=== PATIENT | female | born 1990 | race Caucasian/White ===

== ENCOUNTER → 2016-10-30 | Outpatient (CLI) | payer BC ==
[~2016-10-30] MED LIST: BCPILLS PO; MINO1CAP25 PO
== END | disposition home or self-care (01) ==
LOC: C.PATHSPEC 17:42
PROVIDERS: ATTEND Obstetrics & Gynecology
DX: R87.610 Atypical squamous cells of undetermined significance on cytologic smear of cervix (ASC-US) (principal); R87.810 Cervical high risk human papillomavirus (HPV) DNA test positive; R87.612 Low grade squamous intraepithelial lesion on cytologic smear of cervix (LGSIL)

== ENCOUNTER → 2017-02-20 | Outpatient (CLI) | payer BC, OTHER | END | disposition home or self-care (01) | LOC: C.PATHSPEC 13:49 → MERGE 13:49 | PROVIDERS: ATTEND Obstetrics & Gynecology | DX: R87.612 Low grade squamous intraepithelial lesion on cytologic smear of cervix (LGSIL) (principal) ==

== ENCOUNTER → 2017-09-17 | Outpatient (CLI) | payer BC | END | disposition home or self-care (01) | LOC: C.PAPS 10:56 | PROVIDERS: ATTEND Obstetrics & Gynecology | DX: N87.1 Moderate cervical dysplasia (principal) ==

== ENCOUNTER 2019-09-24 22:04 | Inpatient (IN) ==
[2019-09-24] MEDS ORDERED: OXYTOCIN 30 UNITS/500 ML BAG IV PRN (22:14)
--- NOTE | 2019-09-24 22:25 | History & Physical Report ---
Date of Service September 24, 2019 Assessment & Plan (1) Normal labor: IUP at 40+ week in labor requesting epidural analgesia anticipate vaginal History of Present Illness Primary Care Provider: NO PCP Patient is a 29 yo white female EDC 09/22/19 who presents t 40+ weeks with regular contractions for the past 3 hours. no bloody show or SPROM. uncomplicated- GBS -negative & blood type -O positive. Allergies Allergy/AdvReac Type Severity Reaction Status Date / Time No Known Drug Allergies Allergy Verified 09/19/19 10:38 Home Medications Home Medications Medication Instructions Recorded Confirmed Type prenat.vits,delano,ptk-gwmv-nntqv 1 tab PO DAILY 05/05/19 09/19/19 History Patient History Medical History (Updated 09/24/19 @ 22:26 by Cheri Wheeler MD, FACOG) Abnormal uterine bleeding Dysplasia of cervix MODERATE DYSPLASIA OF CERVIX MAIDA II Screening, , for anatomic survey (Inactive) Varicella Surgical History (Updated 05/08/19 @ 11:34 by Leann Ng) H/O oral surgery S/P breast augmentation S/P loop electrosurgical excision procedure Family History (Updated 05/08/19 @ 11:35 by Leann Ng) Other No pertinent family history in first degree relatives Social History (Updated 05/08/19 @ 11:35 by Leann Ng) marital status: Smoking Status: Never smoker Review of Systems All systems reviewed & are unremarkable except as noted in HPI & below Physical Exam Constitutional: WD/WN, vitals as above Respiratory: normal respiratory effort, lungs clear to auscultation Cardiovascular: RRR, no murmur, no edema Psychiatric: A+Ox3, euthymic affect Genitourinary: Manual OB Exam: + cervical dilation 4 cm, + cervical effacement 100% and + station -1 OB Exam Monitor Tracing: + external FHT monitor used, + external uterine monitor used, + category I and + normal FHT variability Results & Data Vital Signs (Past 12 Hours) Vital Signs Pulse BP 09/24/19 22:14 75 137/88 Code Status & VTE Plan VTE Prophylaxis Plan VTE Prophylaxis will be ordered: No
[2019-09-24 22:37] LABS: Hematocrit (blood only) 38.8 % (37-47); Mean Corpuscular Volume 92.6 fL (80-100); Mean Platelet Volume 12.1 fL (7.4-10.4); Platelet Count 184 K/uL (130-400); RDW Coefficient of Variation 12.4 % (11.5-14.5); RDW Standard Deviation 41.7 fL (36.4-46.3); Red Blood Count 4.19 M/uL (4.2-5.4)
[2019-09-24] MEDS: LACTATED RINGER'S 1,000 ML IV PRN ×2 (22:37→23:27)
[2019-09-24 22:38] LABS: Mean Corpuscular Hgb Conc 33.5 g/dL (32-36)
[2019-09-24] MEDS ORDERED: ePHEDrine sulfate 50 MG/ML AMP ONE (23:37)
[2019-09-24] MEDS ORDERED: BUPIVACAINE 0.25% 30 ML VIAL ONE (23:37)
[2019-09-24] MEDS ORDERED: fentaNYL citrate 100 MCG/2 ML VIAL ONE (23:37)
[2019-09-24] MEDS ORDERED: fentaNYL 2MCG/ML ROPIV 1.25MG/ML 100 ML BAG EPI ONE (23:38)
--- NOTE | 2019-09-24 23:57 | Anesthesiology Consultation ---
Date of Service September 24, 2019 Assessment & Plan (1) Encounter for pre-operative examination: Chart Review Chart Review: Acceptable Risk for Labor Epidural Consults Requested none ASA ASA2 Proposed Anesthesia Anesthesia Type: Labor Epidural Risk / Benefits Reviewed With: PT / POA / Parent / Guardian, Accepts Plan and Informed Consent Obtained History Height/Weight Height: 5 ft 10 in Weight: 86.183 kg Allergies Allergy/AdvReac Type Severity Reaction Status Date / Time No Known Drug Allergies Allergy Verified 09/19/19 10:38 Medications Home Medications Medication Instructions Recorded Confirmed Last Taken prenat.vits,delano,gxv-ibdm-cygrl 1 tab PO DAILY 05/05/19 09/24/19 09/24/19 09:00 Active Medications Generic Name Dose Route Start Last Admin Trade Name Freq PRN Reason Stop Dose Admin Lactated Ringer's 1,000 mls @ 125 mls/hr 09/24/19 22:14 09/24/19 23:27 Lr IV 09/26/19 22:13 999 mls/hr .Q8H PRN Administration L&D Protocol Protocol Past Medical History Medical History Abnormal uterine bleeding Dysplasia of cervix MODERATE DYSPLASIA OF CERVIX MAIDA II Screening, , for anatomic survey (Inactive) Varicella Exercise / Class Metabolic Activity II 4-5 Yardwork/Stairs/Walk up hill Past Family History Family History Other No pertinent family history in first degree relatives Past Surgical History Surgical History H/O oral surgery S/P breast augmentation S/P loop electrosurgical excision procedure Past Anesthesia History No Hx of Anesthesia Complications and No Family Hx of Anesthesia Complications History of PONV No Hx of PONV and No Hx of Motion Sickness Social History Smoking Status: Never smoker Hx Alcohol Use: No Hx Substance Use: No substance use type: does not use Physical Exam Vital Signs Last Vital Signs Temp 98.8 F 09/24/19 22:18 Pulse 84 09/24/19 23:54 Resp 18 09/24/19 22:18 BP 137/88 09/24/19 22:18 Pulse Ox 100 09/24/19 23:54 ENMT Mouth: no dentition abnormality Thyromental Distance: > or= 3.5 Finger Breadths Mallampati Class: II Neck normal visual inspection Respiratory normal respiratory effort Auscultation: lungs clear to auscultation bilaterally Cardiovascular Rate/Rhythm: regular rate and regular rhythm Testing Laboratory Results 09/24/19 22:28
[2019-09-25] MEDS: LACTATED RINGER'S 1,000 ML IV PRN (00:10)
[2019-09-25] MEDS ORDERED: DiphenhydrAMINE HCL 50 MG/ML VIAL IV PRN (00:18)
[2019-09-25] MEDS ORDERED: NALOXONE HCL 0.4 MG/1 ML VIAL/CARP IV PRN (00:18)
[2019-09-25] MEDS ORDERED: ePHEDrine sulfate 50 MG/ML AMP IV PRN (00:18)
[2019-09-25] MEDS ORDERED: fentaNYL 2MCG/ML ROPIV 1.25MG/ML 100 ML BAG EPI PRN (00:18)
[2019-09-25] MEDS ORDERED: NALOXONE HCL 1 MG in SODIUM CHLORIDE 0.9% 1000ML 1,000 ML IV PRN (00:18)
[2019-09-25] MEDS ORDERED: NALBUPHINE HCL INJ 10 MG/ML AMP IV PRN (00:18)
[2019-09-25] MEDS ORDERED: ONDANSETRON INJ 2 MG/ML 2 ML VIAL IV PRN (00:18)
[2019-09-25] MEDS ORDERED: SUPERCREAM 0.870% 15 GM JAR EXT PRN (06:02)
[2019-09-25] MEDS ORDERED: OXYTOCIN 30 UNITS/500 ML BAG IV PRN (06:02)
[2019-09-25] MEDS ORDERED: OXYCODONE/ACETAMINOPHEN 5mg/325mg TAB PO PRN (06:02)
[2019-09-25] MEDS ORDERED: BENZOCAINE 20% AER SPR 82.5 GM CAN EXT PRN (06:02)
[2019-09-25] MEDS ORDERED: ACETAMINOPHEN 325 MG TAB PO PRN (06:02)
[2019-09-25] MEDS ORDERED: HYDROCORTISONE ACETATE 25 MG SUPP PR PRN (06:02)
[2019-09-25] MEDS ORDERED: bisacodyL 10 MG SUPP PR PRN (06:02)
[2019-09-25] MEDS ORDERED: DIPHTHERIA/TETANUS/PERTUSSIS 0.5 ML SYR/VIAL IM ONE (06:02)
--- NOTE | 2019-09-25 07:21 | Delivery Summary ---
DATE OF OPERATION: 09/25/2019 The patient is a 29-year-old G1, P0 white female, EDC of 09/22/2019 who presented in active labor. She received effective epidural analgesia. Membranes were ruptured when she was 9 cm dilated. She pushed effectively over intact perineum for delivery of a viable female infant. A tight nuchal cord was cut and clamped prior to delivering the rest of the , which was delivered easily. The infant was then placed on the mother's abdomen for further attention and drying. Cord was cut prior to delivering the rest of the because of the tight nuchal cord. The placenta was expressed intact with a 3-vessel cord. A first-degree vaginal laceration was repaired with 3-0 chromic in the usual fashion. Estimated blood loss was 350 mL. Mother and were doing well after delivery. I attest to the content of the Intraoperative Record and any orders documented therein. Any exception s are noted below.
--- NOTE | 2019-09-25 07:35 | Anesthesia Procedure Note ---
Date of Service September 25, 2019 Anesthesia Post Epidural Note Vital Signs Vital Signs: Temp Pulse Resp BP Pulse Ox 36.9 C 82 18 110/60 97 09/25/19 07:00 09/25/19 07:28 09/25/19 07:00 09/25/19 07:28 09/25/19 05:19 Notes Mental Status: alert / awake / arousable and participated in evaluation Nausea / Vomiting: adequately controlled Pain: adequately controlled Airway Patency, RR, SpO2: stable & adequate BP & HR: stable & adequate Hydration State: stable & adequate Neuraxial Anesthesia: was administered and sensory block is resolving Anesthetic Complications: no major complications apparent Epidural: Removed without complications and With tip intact
[2019-09-25] MEDS: IBUPROFEN 600 MG TAB PO PRN ×2 (10:47→16:14)
[2019-09-25] MEDS: DOCUSATE SODIUM 100 MG CAP PO SCH ×2 (14:34→20:46)
[2019-09-25] MEDS: PRENATAL VITAMIN 1 TAB PO SCH (14:34)
--- NOTE | 2019-09-26 06:48 | Obstetrical Progress Note ---
Date of Service September 26, 2019 Assessment & Plan (1) Encounter for care and examination after delivery: - PPD1 - progressing appropriately - continue supportive care Supervising Physician Co-Signing Physician Notes Resident Physician Supervision Note: I interviewed and examined the patient. Discussed with Dr. Lewis and agree with findings and plan as documented in the note. Any exceptions or clarifications are listed here: [None] Documented By: Jyoti Fuentes MD, FACOG Subjective No complaints this AM Review of Systems Constitutional: + fatigue; no fever and no chills Respiratory: no cough and no dyspnea Cardiovascular: no chest pain, no syncope, no edema and no calf pain Gastrointestinal: no abdominal pain, no nausea, no vomiting, no cramping, no constipation and no diarrhea/loose stools Genitourinary: no dysuria and no difficulty urinating Neurologic: no headache(s) Physical Exam Constitutional: well developed and well nourished Respiratory: normal respiratory effort; no respiratory distress, no labored breathing and no cough Auscultation: no crackles, no rales, no rhonchi and no wheezes Cardiovascular: Rate/Rhythm: regular rate and regular rhythm Heart Sounds: no gallop, no murmur and no cardiac rub Extremities: no pedal edema Gastrointestinal (Abdomen): Inspection/Auscultation: + abdomen distended and normal bowel sounds Percussion/Palpation: abdomen soft; no guarding Musculoskeletal: no tenderness to palpation of calves bilaterally Genitourinary: Uterus small and firm, palpable in midline at level of umbilicus, no tenderness to palpation. Results & Data Vital Signs (Past 12 Hours) Vital Signs Temp Pulse Resp BP Pulse Ox 09/26/19 03:10 36.6 C 70 18 124/78 98 09/25/19 23:25 37.0 C 70 18 115/72 97 09/25/19 20:35 36.8 C 75 18 118/80 PG Care Time/CCT Total # of Minutes Spent Total Time Spent with Patient: Total time spent is greater than 50% in coordination of care (as documented) at patient's floor/unit and/or counseling patient: Resident Activity Tracking Resident Involvement: Resident Care Provided Care Provided: OB Delivery
[2019-09-26 07:08] LABS: Hematocrit (blood only) 38.6 % (37-47); Hemoglobin 12.5 g/dL (12.0-16.0); Mean Corpuscular Hemoglobin 30.5 pg (25-34); Mean Corpuscular Hgb Conc 32.4 g/dL (32-36); Mean Corpuscular Volume 94.1 fL (80-100); Mean Platelet Volume 11.5 fL (7.4-10.4); Platelet Count 144 K/uL (130-400); RDW Coefficient of Variation 12.5 % (11.5-14.5); RDW Standard Deviation 42.7 fL (36.4-46.3); White Blood Count 10.45 K/uL (4.8-10.8)
[2019-09-26] MEDS: DOCUSATE SODIUM 100 MG CAP PO SCH (08:52)
[2019-09-26] MEDS: PRENATAL VITAMIN 1 TAB PO SCH (08:52)
[2019-09-26] MEDS ORDERED: bisacodyL 5 MG TABEC PO SCH (20:00)
== END 2019-09-26 12:25 | disposition home or self-care (01) | DRG 807 ==
LOC: OPB 22:04 → 4S1 22:07 → 4S2 09-25 08:45

== ENCOUNTER 2024-10-04 13:22 | Inpatient (IN) ==
[2024-10-04] MEDS ORDERED: LIDOCAINE 1% LOCAL 20 ML VIAL INFIL PRN (13:34)
[2024-10-04] MEDS ORDERED: OXYTOCIN 30 UNITS/NSS 30 UNITS/500 ML BAG IV PRN ×2 (13:34→21:11)
[2024-10-04 14:28] LABS: Hematocrit (blood only) 41.7 % (37.0-47.0); Hemoglobin 14.2 g/dl (12.0-16.0); Mean Corpuscular Hemoglobin 31.4 pg (25.0-34.0); Mean Corpuscular Hgb Conc 34.1 g/dL (32.0-36.0); Mean Corpuscular Volume 92.3 fL (80.0-100.0); Mean Platelet Volume 11.6 fL (9.4-12.4); Platelet Count 193 K/uL (130-400); RDW Coefficient of Variation 11.9 % (11.5-14.5); RDW Standard Deviation 40.4 fL (36.4-46.3); Red Blood Count 4.52 M/uL (4.20-5.40); White Blood Count 11.48 K/ul (4.8-10.8)
[2024-10-04] MEDS: SODIUM CHLORIDE 0.9% 1,000 ML IV SCH (14:30)
--- NOTE | 2024-10-04 15:04 | Anesthesiology Consultation ---
Date of Service October 04, 2024 Assessment & Plan Chart Review Chart Review: Acceptable Risk for Surgery and Acceptable Risk for Labor Epidural Consults Requested none ASA ASA2 Proposed Anesthesia Anesthesia Type: Labor Epidural Risk / Benefits Reviewed With: PT / POA / Parent / Guardian, Accepts Plan and Informed Consent Obtained History Height/Weight Height: 5 ft 9 in Weight: 90.265 kg Allergies Allergy/AdvReac Type Severity Reaction Status Date / Time No Known Drug Allergies Allergy NKA Verified 10/04/24 06:24 Medications Home Medications Medication Instructions Recorded Confirmed Last Taken vits no.124-ferrous fum 1 tab PO DAILY 10/04/24 10/04/24 10/03/24 27 mg iron-folic acid 800 mcg tablet ( Vitamin) Active Medications Generic Name Dose Route Start Last Admin Trade Name Freq PRN Reason Stop Dose Admin Sodium Chloride 1,000 mls @ 80 mls/hr 10/04/24 15:00 10/04/24 15:02 Nss IV 10/05/24 14:59 50 mls/hr .[id number] MABEL Infusion NPO Date Last Intake of Fluids: 10/04/24 Time Last Intake of Fluids: 14:00 Date Last Intake of Solids: 10/04/24 Time Last Intake of Solids: 12:00 Past Medical History Medical History Moderate dysplasia of cervix (MAIDA II) Dysplasia of cervix 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 --LEEP done, CIN1 Varicella Abnormal uterine bleeding Exercise / Class Metabolic Activity II 4-5 Yardwork/Stairs/Walk up hill Past Family History Family History Other No pertinent family history in first degree relatives Denies family history of Ovarian cancer Breast cancer Colorectal cancer Past Surgical History Surgical History S/P appy (03/2020) H/O oral surgery S/P loop electrosurgical excision procedure (02/2017) path - CIN1 S/P breast augmentation Past Anesthesia History No Hx of Anesthesia Complications and No Family Hx of Anesthesia Complications History of PONV No Hx of PONV and No Hx of Motion Sickness Social History Smoking Status: Never smoker Do You Dip or Chew Tobacco: No Hx Alcohol Use: No Hx Substance Use: No substance use type: does not use Physical Exam Vital Signs Last Vital Signs Temp 36.7 C 10/04/24 13:37 Pulse 83 10/04/24 14:55 Resp 20 10/04/24 13:37 BP 118/76 10/04/24 14:55 Pulse Ox 97 10/04/24 14:54 ENMT Mouth: no TMJ abnormality Thyromental Distance: > or= 3.5 Finger Breadths Mallampati Class: II Neck normal visual inspection and trachea midline; neck extension not limited Respiratory normal respiratory effort Auscultation: lungs clear to auscultation bilaterally Cardiovascular Rate/Rhythm: regular rate and regular rhythm Heart Sounds: no murmur Musculoskeletal Spine: normal cervical ROM Extremities: full ROM of extremities Neurologic moves all extremities Psychiatric Orientation: alert and oriented x 3 Testing Laboratory Results 10/04/24 14:00
[2024-10-04] MEDS: BUPIVACAINE 0.25% PF 30 ML VIAL ONE (15:21)
[2024-10-04] MEDS: LIDOCAINE 2%/EPINEPHRINE 1:200,000 20 ML PF ONE (15:21)
[2024-10-04] MEDS: fentaNYL citrate PF 100 MCG/2 ML VIAL ONE (15:21)
[2024-10-04] MEDS: fentANYL 2 MCG/ML BUPIVacaine 0.125%-NSS 100ML BAG ONE (15:22)
[2024-10-04] MEDS ORDERED: NALOXONE HCL 0.4 MG/1 ML VIAL/CARP IV PRN (15:27)
[2024-10-04] MEDS ORDERED: BUPIVACAINE 0.25% PF 30 ML VIAL EPI PRN (15:27)
[2024-10-04] MEDS ORDERED: NALBUPHINE HCL INJ 10 MG/ML AMP IV PRN (15:27)
[2024-10-04] MEDS ORDERED: fentaNYL citrate PF 100 MCG/2 ML VIAL EPI PRN (15:27)
[2024-10-04] MEDS ORDERED: ONDANSETRON INJ 2 MG/ML 2 ML VIAL IV PRN ×2 (15:27→15:50)
[2024-10-04] MEDS ORDERED: NALOXONE HCL 1 MG in SODIUM CHLORIDE 0.9% 1,000 ML IV PRN (15:27)
[2024-10-04] MEDS ORDERED: ROPIVACAINE 0.5% PF 5 MG/ML 20 ML VIAL EPI PRN (15:27)
[2024-10-04] MEDS ORDERED: SODIUM CHLORIDE 0.9% PF INJ 10 ML VIAL EPI PRN (15:27)
[2024-10-04] MEDS ORDERED: fentANYL 2 MCG/ML BUPIVacaine 0.125%-NSS 100ML BAG EPI PRN (15:27)
[2024-10-04] MEDS ORDERED: LIDOCAINE 2% MPF LOCAL 5 ML VIAL EPI PRN (15:27)
[2024-10-04] MEDS ORDERED: diphenhydrAMINE 50 MG/ML VIAL IV PRN (15:27)
[2024-10-04] MEDS: SODIUM CHLORIDE 0.9% PF INJ 10 ML VIAL ONE (15:32)
[2024-10-04] MEDS: ePHEDrine sulfate 50 MG/ML AMP ONE (15:32)
[2024-10-04] MEDS: ePHEDrine sulfate 50 MG/ML AMP IV PRN (15:50)
--- NOTE | 2024-10-04 16:23 | History & Physical Report ---
Date of Service October 04, 2024 Assessment & Plan (1) Term : Plan: Yara is a 34-year-old G2, P1 currently at 39 weeks 4 days gestational age presents in labor. 1. Fetus: Category 1 tracing 2. Labor: Progressing spontaneously. Status post spontaneous rupture of membrane 3. Vitals: Within normal limit 4. GBS negative (2) Normal labor: Admission and Anticipated Discharge Date Admission Date: October 04, 2024 History of Present Illness Primary Care Provider: NO PCP Yara is a 34-year-old G2, P1 currently at 39 weeks 4 days gestational age presents in labor. complicated by advanced maternal age but has been otherwise uncomplicated OB Labs: Blood Type O Positive 02/28/24 Antibody Screen NEGATIVE 02/28/24 Hgb 13.0 g/dl (12.0-16.0) 07/28/24 Hct 38.4 % (37.0-47.0) 07/28/24 MCV 92.1 fL (80.0-100.0) 02/28/24 Plt Count 214 K/uL (130-400) 02/28/24 Rubella IgG Antibody Immune (Immune) 02/28/24 RPR Nonreactive (Nonreactive) 02/28/24 Treponema pallidum Ab Negative (Negative) 07/28/24 Hep Bs Antigen Neg (Neg) 02/21/19 Hep Bs Antigen NON-REACTIVE (NON-REACTIVE) 02/28/24 Hepatitis C Ab (EIA) NON-REACTIVE (NON-REACTIVE) 02/28/24 HIV 1&2 Ab/P24 Ag 4thGn Neg (Neg) 02/21/19 HIV (1&2) Ag & Ab Conf NON-REACTIVE (NON-REACTIVE) 02/28/24 Glucose 1 Hr 50 gm 135 mg/dl (70-130) H 04/21/24 OB Optional Labs: Chlamydia trachomatis RNA Not Detected (NotDetected) 02/28/24 Neisseria gonorrhoeae RNA Not Detected (NotDetected) 02/28/24 Thyroid Stimulating Hormone (TSH) 2.199 uIu/ml (0.300-4.500) 01/25/23 Labs Reviewed: declined CF/SMA/MSAFP (-) cfDNA Allergies Allergy/AdvReac Type Severity Reaction Status Date / Time No Known Drug Allergies Allergy NKA Verified 10/04/24 06:24 Home Medications Medication Instructions Recorded Confirmed Type vits no.124-ferrous fum 1 tab PO DAILY 10/04/24 10/04/24 History 27 mg iron-folic acid 800 mcg tablet ( Vitamin) Patient History Medical History Moderate dysplasia of cervix (MAIDA II) Dysplasia of cervix 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 --LEEP done, CIN1 Varicella Abnormal uterine bleeding Surgical History S/P appy (03/2020) H/O oral surgery S/P loop electrosurgical excision procedure (02/2017) path - CIN1 S/P breast augmentation Family History Other No pertinent family history in first degree relatives Denies family history of Ovarian cancer Breast cancer Colorectal cancer Social History Smoking Status: Never smoker Second Hand Exposure: No; Do You Dip or Chew Tobacco: No; Tobacco Cessation Education Requested by Patient: No Hx Alcohol Use: No Hx Substance Use: No Preferred Language: [place] Citizen Communication Ability: Effective Electrical Line Mechanic Required: No Beliefs That Will Affect Care: None marital status: marital status details: Jorge Barahona (38) [phone] Current Living Situation: Spouse and Family Current Living Situation Comment: lives with spouse, daughter, dog current occupational status: employed current occupation: [employer] Other Information That Helps Us Care for You: No Feels Safe at Home: Yes Safety Concerns: Feels Safe At This Time Diet: regular Physical Activity Frequency: Daily Assistive Devices: None Physical Exam Genitourinary: Manual OB Exam: + cervical dilation 5 cm, + cervical effacement 90%, + station -2 and + amniotic fluid (SROM) clear OB Exam Monitor Tracing: + external FHT monitor used, + external uterine monitor used, + category I and + normal FHT variability Results & Data Vital Signs (Past 12 Hours) Vital Signs Temp Pulse Resp BP Pulse Ox 10/04/24 16:14 98 10/04/24 16:14 74 10/04/24 16:14 77 102/58 L 10/04/24 16:10 95 H 107/61 10/04/24 16:09 88 99 10/04/24 16:05 76 107/61 10/04/24 16:04 79 98 10/04/24 16:00 16 10/04/24 16:00 16 10/04/24 15:59 97 10/04/24 15:59 108 H 10/04/24 15:59 110 H 134/86 10/04/24 15:57 82 135/78 10/04/24 15:54 98 H 90/53 L 98 10/04/24 15:52 88 101/61 10/04/24 15:49 98 10/04/24 15:49 86 10/04/24 15:49 78 85/50 L 10/04/24 15:44 99 10/04/24 15:44 89 10/04/24 15:44 108 H 102/72 10/04/24 15:39 97 10/04/24 15:39 101 H 10/04/24 15:39 90 104/63 10/04/24 15:34 97 10/04/24 15:34 93 H 10/04/24 15:34 86 123/77 10/04/24 15:32 96 H 118/83 10/04/24 15:30 91 H 16 118/75 10/04/24 15:29 96 10/04/24 15:29 94 H 10/04/24 15:29 87 93 10/04/24 15:28 86 117/70 10/04/24 15:27 16 10/04/24 15:27 16 10/04/24 15:26 93 H 117/67 10/04/24 15:25 16 10/04/24 15:25 16 10/04/24 15:24 96 10/04/24 15:24 89 10/04/24 15:24 85 118/69 10/04/24 15:22 18 10/04/24 15:22 18 10/04/24 15:21 75 122/77 10/04/24 15:20 78 16 127/78 10/04/24 15:19 79 97 10/04/24 15:17 75 126/77 10/04/24 15:14 100 H 96 10/04/24 15:13 89 90 10/04/24 15:10 85 131/76 10/04/24 15:09 96 H 98 10/04/24 15:04 81 97 10/04/24 14:59 92 H 97 10/04/24 14:55 83 118/76 10/04/24 14:54 82 97 10/04/24 14:49 86 97 10/04/24 14:44 82 98 10/04/24 14:40 83 116/73 10/04/24 14:39 87 97 10/04/24 14:34 84 96 10/04/24 14:29 87 97 10/04/24 14:27 81 94 10/04/24 14:24 79 97 10/04/24 14:20 37.0 C 10/04/24 14:18 85 96 10/04/24 14:13 87 96 10/04/24 14:08 88 97 10/04/24 14:03 91 H 96 10/04/24 13:58 83 97 10/04/24 13:53 99 H 97 10/04/24 13:37 36.7 C 86 20 137/85 Code Status & VTE Plan VTE Prophylaxis Plan VTE Prophylaxis will be ordered: No Coding Level of Care Code None Diagnoses Term Z34.90 Normal labor O80; Z37.9
[2024-10-04] MEDS ORDERED: HYDROCORTISONE ACETATE 25 MG SUPP PR PRN (21:11)
[2024-10-04] MEDS ORDERED: BENZOCAINE 20% SPRY 85 APPLN/85 GM CAN EXT PRN (21:11)
[2024-10-04] MEDS ORDERED: IBUPROFEN 600 MG TAB PO PRN (21:11)
--- NOTE | 2024-10-04 21:11 | Delivery Summary ---
Vaginal Delivery Summary Date of Service October 04, 2024 Vaginal Delivery Summary and 1st Degree LAC Progressed to 10 cm dilated 100% effaced +3 station pushed intact perineum with epidural anesthesia and delivered a viable female with weight and Apgars pending. Had the delivered without difficulty quickly followed by shoulders and body. A tight nuchal cord was noted which was delivered through and reduced after full delivery. A 1 minute delayed cord clamping was initiated after which Cord was double clamped and cut and remained on maternal abdomen. Cord blood obtained. Attention turned to delivery the placenta was delivered intact three-vessel cord gentle cord traction. Inspection of perineum vagina cervix there is noted to be a first-degree perineal laceration which was pared with 3-0 Vicryl with a single figure of eight stitch. Needle sponge and instrument counts are correct at completion of the case. Both mother and stable in the immediate post delivery timeframe. No complications noted in blood loss per QBL and chart [facility] Vaginal Delivery Charge Delivery Type Details: and 1st Degree LAC
--- NOTE | 2024-10-05 07:18 | Anesthesia Procedure Note ---
Date of Service October 05, 2024 Anesthesia Post Epidural Note Vital Signs Vital Signs: Temp Pulse Resp BP Pulse Ox O2 Del Method 36.5 C 78 18 112/73 98 Room Air 10/05/24 03:19 10/05/24 03:19 10/05/24 03:19 10/05/24 03:19 10/05/24 03:19 10/05/24 03:19 Notes Mental Status: alert / awake / arousable and participated in evaluation Nausea / Vomiting: adequately controlled Pain: adequately controlled Airway Patency, RR, SpO2: stable & adequate BP & HR: stable & adequate Hydration State: stable & adequate Neuraxial Anesthesia: was administered and sensory block is resolving Anesthetic Complications: no major complications apparent and Pt Satisfied with anesthetic care Epidural: Removed without complications and With tip intact
[2024-10-05] MEDS: DIPHTHER/TETAN/PERTUS Vaccine (Tdap, Adol/Adult) 0.5mL IM ONE (07:27)
[2024-10-05] MEDS: DOCUSATE SODIUM 100 MG CAP PO SCH (07:37)
[2024-10-05] MEDS: PRENATAL VITAMIN 1 TAB PO SCH (07:37)
[2024-10-05] MEDS: FERROUS SULFATE 325 MG TAB PO SCH (07:37)
--- NOTE | 2024-10-05 09:36 | Obstetrical Progress Note ---
Date of Service October 05, 2024 Assessment & Plan (1) Encounter for care and examination after delivery: Day 1 status post . Doing well. Routine care Subjective Ambulation: ambulating normally Voiding: no voiding problems Passing Gas:: Yes Diet Tolerance:: regular diet Lochia:: Moderate Feeding Type:: breast feeding Physical Exam Constitutional WD/WN, vitals as above Respiratory normal respiratory effort; no respiratory distress and no labored breathing Cardiovascular Extremities: no calf tenderness Gastrointestinal (Abdomen) Inspection/Auscultation: abdomen normal to inspection; abdomen not distended Percussion/Palpation: abdomen soft; abdomen nontender, no guarding and abdomen not rigid Genitourinary OB Exam Abdomen: + fundal height Fundus: + firm and + relation to umbilicus (Below); not tender or not boggy Results & Data Vital Signs (Past 12 Hours) Vital Signs Temp Pulse Pulse Pulse Resp BP BP 10/05/24 07:35 10/05/24 07:26 36.9 C 85 18 118/80 10/05/24 03:19 36.5 C 78 18 112/73 10/04/24 23:56 36.4 C L 86 16 107/69 10/04/24 23:23 88 113/55 L 10/04/24 23:08 86 119/59 L 10/04/24 22:53 86 115/60 10/04/24 22:38 88 116/56 L 10/04/24 22:08 94 H 119/67 10/04/24 21:53 86 18 125/70 10/04/24 21:38 96 H 18 119/72 Pulse Ox O2 Del Method 10/05/24 07:35 Room Air 10/05/24 07:26 97 Room Air 10/05/24 03:19 98 Room Air 10/04/24 23:56 98 Room Air 10/04/24 23:23 10/04/24 23:08 10/04/24 22:53 10/04/24 22:38 10/04/24 22:08 10/04/24 21:53 10/04/24 21:38
[2024-10-05 11:44] VITALS: O2SAT 96
[2024-10-05] MEDS: ACETAMINOPHEN 325 MG TAB PO PRN (13:14)
[2024-10-05] MEDS: BUPIVACAINE 0.25% PF 30 ML VIAL EPI STA (14:51)
[2024-10-05] MEDS: LIDOCAINE 2%/EPINEPHRINE 1:200,000 20 ML PF EPI STA (14:52)
[2024-10-05] MEDS: SODIUM CHLORIDE 0.9% PF INJ 10 ML VIAL EPI STA (14:52)
[2024-10-05] MEDS: fentaNYL citrate PF 100 MCG/2 ML VIAL EPI STA (14:52)
[2024-10-05 16:02] VITALS: RESP 18
[2024-10-05] MEDS: bisacodyL 5 MG TABEC PO SCH (19:35)
[2024-10-05 20:10] VITALS: BP 123/80; PULSE 81; TEMP 97.7
[2024-10-06] MEDS ORDERED: bisacodyL 10 MG SUPP PR PRN
== END 2024-10-05 22:24 | disposition home or self-care (01) | DRG 807 ==
LOC: OPB 13:22 → 4S1 13:30 → 4E2 23:53
DX: Z3A.39 39 weeks gestation of pregnancy; O69.81X0 Labor and delivery complicated by cord around neck, without compression, not applicable or unspecified; Z37.0 Single live birth; O70.0 First degree perineal laceration during delivery